=== PATIENT | female | born 1970 | race Caucasian/White ===

== ENCOUNTER 2018-09-28 11:00 | Inpatient (IN) | payer OTHER ==
[2018-09-20 17:36] VITALS: BMI 22.6
--- NOTE | 2018-09-21 10:39 | HP ---
Admitting History and Physical - Primary Care Physician PCP: Srinivasa Perea - Admission Chief Complaint: Left breast cancer History of Present Illness: 47 year old premenapausal female with strong family H/O breast cancer who underwent screening mammogram 06/2018 showing an area of distortion and pleomorphic calcification left upper inner quadrant. Diagnostic nmammogram and Us showed 9mm spiculated mass with calcifications 3 cm FN left breast at 10: 00. US core bx left breast at 10:00 showed invasive ductal carcinoma ER+/VA+ HER2-. . Breast MRI showed localized left breast cancer and targeted right breast US for right breast MRI findings birad 3, 6 month follow up. Genetic testing panel negative. History Source: Patient Limitations to Obtaining History: No Limitations - Past Medical History ...LMP: 08/18/18 - Past Surgical History Additional Past Surgical History: left breast US core bx benign 2011 - Advance Directives Advance Directives: Yes: Health Care Proxy - Smoking History Smoking history: Former smoker Have you smoked in the past 12 months: No Aproximately how many cigarettes per day: 10 If you are a former smoker, when did you quit?: 1999 - Alcohol/Substance Use Hx Alcohol Use: Yes (SOCIAL) Home Medications - Allergies Allergies/Adverse Reactions: Allergies Allergy/AdvReac Type Severity Reaction Status Date / Time No Known Allergies Allergy Verified 09/20/18 17:26 - Home Medications Home Medications: Ambulatory Orders Multivit-Min/Iron Fum/Folic AC [Smaad-Bgwfbvg-Ovjwiwod Tablet] 1 each PO DAILY 09/20/18 Family Disease History - Family Disease History Family Disease History: CA: Grandparent (mat GF melanoma 43), Sister (breast ca bilateral mastectomies) Other Family History: pat aunt ovarian ca 65. pat [place] uterine ca? Problem List - Problems (1) Breast cancer, left breast Code(s): C50.912 - MALIGNANT NEOPLASM OF UNSPECIFIED SITE OF LEFT FEMALE BREAST Qualifiers: Breast location: upper inner quadrant of breast Estrogen receptor status: positive Patient sex: female Qualified Code(s): C50.212 - Malignant neoplasm of upper-inner quadrant of left female breast; Z17.0 - Estrogen receptor positive status [ER+] Assessment/Plan Bilateral total mastectomies with reconstruction, left sentenel node biopsy , lymphoscintogram , possible left axillary node dissection
[2018-09-28] MEDS ORDERED: MIDAZOLAM HCL 2 MG/2 ML SINGLE DOSE VIAL ONE (12:34)
[2018-09-28] MEDS ORDERED: BUPIVACAINE HCL/PF 2.5 MG/ML - 30 ML VIAL IJ ONE (12:35)
[2018-09-28] MEDS ORDERED: BUPIVACAINE LIPOSOME/PF (EXPAREL) 266 MG/20 ML VIAL ONE (12:35)
[2018-09-28] MEDS ORDERED: ceFAZolin SODIUM 1 GM VIAL ONE (12:37)
[2018-09-28] MEDS ORDERED: GENTAMICIN SO4 80 MG/2 ML VIAL ONE (12:37)
[2018-09-28] MEDS ORDERED: ISOSULFAN BLUE 10 MG/ML VIAL SQ ONE (13:06)
[2018-09-28] MEDS ORDERED: LIDOCAINE HCL/PF 2% SDV 5ML VIAL ONE (13:09)
[2018-09-28] MEDS ORDERED: DEXAMETHASONE SOD PHOSPHATE 4 MG/1 ML VIAL ONE (13:09)
[2018-09-28] MEDS ORDERED: ONDANSETRON 4 MG/2 ML VIAL ONE (13:09)
[2018-09-28] MEDS ORDERED: PROPOFOL 20 ML ONE (13:10)
[2018-09-28] MEDS ORDERED: ROCURONIUM BROMIDE 50 MG/5 ML VIAL ONE ×2 (13:11→15:18)
[2018-09-28] MEDS ORDERED: HYDROmorphone HCL/PF 1 MG/ML AMP ONE (13:33)
[2018-09-28] MEDS ORDERED: oxyCODONE HCL 5 MG TABLET PO PRN ×2 (14:22→14:23)
[2018-09-28] MEDS ORDERED: DESFLURANE GAS 240 ML BOTTLE IH ONE (15:27)
[2018-09-28] MEDS ORDERED: ONDANSETRON 4 MG/2 ML VIAL IVPUSH PRN ×2 (16:03→17:03)
[2018-09-28] MEDS ORDERED: ACETAMINOPHEN 325 MG TABLET (FP) PO PRN (16:03)
[2018-09-28] MEDS ORDERED: ZOLPIDEM TARTRATE 5 MG TABLET PO PRN (16:03)
[2018-09-28] MEDS ORDERED: GLYCOPYRROLATE 0.2 MG/1 ML VIAL ONE (16:36)
[2018-09-28] MEDS ORDERED: NEOSTIGMINE METHYLSULFATE 0.5 MG/ML - 10 ML MDV ONE (16:36)
[2018-09-28] MEDS ORDERED: KETOROLAC TROMETHAMINE 30 MG/1 ML VIAL ONE (16:36)
--- NOTE | 2018-09-28 16:59 | SURG ---
Surgery Research Computing Specialist Note Research Computing Specialist: Arnol Haywood PA-C Date of Service: 09/28/18 Diagnosis: Breast cancer Procedure: Bilateral breast reconstruction s/p mastectomy with alloderm and implant I was present for the entirety of the operative procedure. For further detail, please refer to operative report. Visit type - Case Type Case Type: Scheduled - Emergency Emergency Visit: No - New patient This patient is new to me today: Yes Date on this admission: 09/28/18 - Critical Care Critical Care patient: No
[2018-09-28] MEDS ORDERED: PROMETHAZINE HCL 25 MG/1 ML VIAL IVPUSH PRN ×2 (17:03→17:56)
[2018-09-28] MEDS ORDERED: PROMETHAZINE HCL 25 MG/1 ML VIAL IVPUSH ONE ×2 (17:20→17:50)
[2018-09-28] MEDS ORDERED: traMADol HCL 50 MG TABLET ONE (17:35)
[2018-09-28] MEDS ORDERED: ACETAMINOPHEN 325 MG TABLET (FP) ONE (17:35)
[2018-09-28] MEDS: ACETAMINOPHEN 325 MG TABLET (FP) PO SCH ×2 (18:15→21:43)
[2018-09-28] MEDS: traMADol HCL 50 MG TABLET PO SCH ×2 (18:16→21:42)
[2018-09-28] MEDS: CEFAZOLIN 1 GM/D5W 1 GM/50 ML BAG IVPB SCH (21:41)
[2018-09-28] MEDS: diazePAM 5 MG TABLET PO SCH (21:42)
--- NOTE | 2018-09-28 23:30 | OP ---
DATE OF OPERATION: 09/28/2018 PREOPERATIVE DIAGNOSIS: Left breast cancer upper inner quadrant. POSTOPERATIVE DIAGNOSIS: Left breast cancer upper inner quadrant, await permanent pathology. PROCEDURE: Bilateral nipple-sparing mastectomies with inframammary approach with bilateral direct implant reconstruction with AlloDerm and a left axillary sentinel lymph node biopsy. ANESTHESIA: General endotracheal anesthesia. PRIMARY SURGEON: Michael Fermin MD RN ON SITE: [facility] PRIMARY SURGEON FOR BILATERAL DIRECT IMPLANT RECONSTRUCTION WITH ALLODERM: Michael Danielle MD with his agency sales management assistant Nina Goodwin. COMPLICATIONS: None. INDICATIONS: Briefly, the patient is a 47-year-old, G2, P2, premenopausal, white female of [place] and [place] descent who has a family history with her sister who had breast cancer at age 46 and had bilateral mastectomies as well as a paternal aunt who had ovarian cancer at age 65. Her maternal grandfather had melanoma at age 43. The patient was found to have some distortion, pleomorphic calcifications in the upper inner aspect of the left breast on screening mammography in June 2018. Stereotactic biopsy showed a moderately differentiated invasive duct cancer, which was ER-MI positive, HER2/amy negative. The patient underwent an MRI showing localized disease and some benign findings in the right breast. She was given the option of partial mastectomy with sentinel lymph node biopsy versus mastectomy and chose to have bilateral mastectomies with a contralateral prophylactic mastectomy. She understood the lack of any survival benefit with prophylactic contralateral mastectomy, but still decided to go forward with this option. She underwent genetic panel testing, which was negative. The patient was seen by the plastic surgeon and opted to have direct implant reconstructions. She opted on nipple-sparing mastectomies and understood the theoretical risk of leaving some tissue underneath the nipple. She understood that we do retroareolar biopsies at the time of surgery. If these show cancer, we would remove the nipples. She understood the need for sentinel lymph node biopsy on the left side due to the cancer, but did not require sentinel node biopsy on the right side. All risks, complications of the procedure including risks of skin flap necrosis, nipple loss, hematoma and infection were explained to the patient. She had a full understanding. The patient was brought in for the procedure on September 28, 2018 and first underwent the lymphoscintigraphy with a periareolar injection of technetium 99 around the left breast nipple areolar complex and then was brought to the [facility] holding area. In the holding area, site verification was made and informed consent was obtained. Patient was marked preoperatively by plastic surgery. DESCRIPTION OF PROCEDURE: She was brought into the operating room and laid on the operating table in the supine position. Venodynes were placed on the lower extremities. She received 2 g of Ancef prior to incision. She underwent general endotracheal anesthesia. Both breasts were sterilely prepped and draped in the usual fashion. Inframammary incisions were marked bilaterally in the inframammary folds about 9 cm in length, symmetrically. The left axillary sentinel lymph node biopsy was first performed. No blue dye was injected since we were doing a nipple-sparing procedure. Incision was made just below the hair-bearing area of the left axilla. Dissection was undertaken and hot node was easily found in the level 1 region of the left axilla with a 10-second gamma count of 7020. This was sent for frozen section and came back negative. No further hot or blue nodes were found. Background count after removal of this noted was 242. Hemostasis was achieved. At this point, the left breast mastectomy was performed through an inframammary incision 9-cm in length. The skin edge was everted and the breast tissue was retracted inferiorly using Marcos clamps. The skin flap was raised using the PEEK radiofrequency device superiorly to the level of the clavicle, medially to the level of the sternum, laterally to the level of the latissimus, and inferiorly to the level of the inframammary fold. The breast was taken off of the pectoralis major muscle from inferomedial-to superolateral, completely removed intact. It was oriented with a long lateral, short superior suture and weighed to allow for appropriate cosmetic result. Specimen radiograph of the left breast did show removal of 2 clips corresponding to one of the clips where the cancer was. A retroareolar biopsy was taken underneath the left breast nipple areolar complex and sent for frozen section and did show some atypical lobular hyperplasia, but the left nipple was spared. Wound was copiously irrigated with warm sterile saline and hemostasis was achieved. At this point, the right breast was approached. Separate instruments and gloves were changed for the right side mastectomy. Again, a 9-cm inframammary incision was used and the skin edges were everted using manual retraction and the breast was retracted inferiorly using Marin clamps. The skin flap was raised using a PEEK radiofrequency device superiorly to the level of the clavicle, medially to the level of the sternum, laterally to the level of the latissimus, and inferiorly below the level of the inframammary fold. The breast was taken off of the pectoralis major muscle using electrocautery from [id number] and completely removed intact. It was oriented with a long lateral, short superior suture and weighed to allow for appropriate cosmetic result. A retroareolar biopsy was taken underneath the right nipple areolar complex and sent for frozen section and came back negative. The right nipple was spared. There was some lobular hyperplasia seen, possibly bordering on LCIS, but will wait for permanent pathology. At this point, Dr. Danielle became the primary surgeon and performed bilateral direct implant reconstruction placed in the subpectoral location using AlloDerm for direct implant reconstruction. Two Robert drains will be placed around each implant and brought through separate stab incisions on the lateral skin folds and sutured in place using 3-0 nylon suture. Incisions will all be closed by Plastic Surgery. The patient will be placed in a surgical bra postoperatively. We did use the supplied skin perfusion device during the case, which showed excellent skin perfusion both after the mastectomy and after implant placement. The patient was extubated at the end of the case and brought to the postanesthesia care unit postoperatively where she will be recovered and admitted postoperatively for pain management and wound management. She did have a paraspinous block, which was placed preoperatively for postoperative pain control that was done by Anesthesia. MICHAEL FERMIN M.D. [id number]
[2018-09-29] MEDS: CEFAZOLIN 1 GM/D5W 1 GM/50 ML BAG IVPB SCH ×4 (02:44→22:05)
[2018-09-29] MEDS: ACETAMINOPHEN 325 MG TABLET (FP) PO SCH ×5 (03:15→22:04)
[2018-09-29] MEDS: traMADol HCL 50 MG TABLET PO SCH ×5 (03:15→22:03)
[2018-09-29] MEDS: DEXTROSE 5%-0.45% SALINE 1,000 ML IV SCH ×2 (07:19→17:30)
[2018-09-29] MEDS: LACTATED RINGERS SOLUTION 1,000 ML IV SCH ×2 (07:20→17:30)
[2018-09-29] MEDS ORDERED: HEPARIN NA (PORCINE) 5,000 UNITS/ML 1ML VIAL SQ SCH (08:00)
[2018-09-29 08:01] LABS: HEMATOCRIT 31.3 % (32.4-45.2); HEMOGLOBIN 10.6 GM/dl (10.7-15.3); MCH 31.2 pg (25.7-33.7); MCHC 33.9 g/dl (32.0-36.0); MEAN CELL VOLUME 91.8 fl (80-96); MEAN PLT VOLUME 7.3 fl (7.5-11.1); PLATELET COUNT 349 K/MM3 (134-434); RBC 3.41 M/mm3 (3.60-5.2); RDW 11.5 % (11.6-15.6); WHITE BLOOD COUNT 6.4 K/mm3 (4.0-10.8)
[2018-09-29] MEDS: HEPARIN NA (PORCINE) 5,000 UNITS/ML 1ML VIAL SQ SCH ×2 (08:30→22:04)
--- NOTE | 2018-09-29 08:51 | PN ---
Progress Note, Physician Chief Complaint: Left breast cancer S/P bilateral total mastctomies left sentenel node biopsy implant alloderm reconstruction POD#1 History of Present Illness: patient is eating, no nausea or vomiting , pain managed with oxycodone prn - Current Medication List Current Medications: Active Medications Acetaminophen (Tylenol -) 650 mg PO Q6H [facility] Last Admin: 09/29/18 07:21 Dose: Not Given Acetaminophen (Tylenol -) 650 mg PO Q4H PRN PRN Reason: FEVER Diazepam (Valium -) 5 mg PO BID [facility] Last Admin: 09/28/18 21:42 Dose: 5 mg Heparin Sodium (Porcine) (Heparin -) 5,000 unit SQ BID@0800,2000 [facility] Cefazolin Sodium (Ancef 1 Gm Premixed Ivpb -) 1 gm in 50 mls @ 100 mls/hr IVPB Q6H-IV [facility] Stop: 10/05/18 20:59 Last Admin: 09/29/18 02:44 Dose: 100 mls/hr Dextrose/Sodium Chloride (D5-1/2ns -) 1,000 mls @ 100 mls/hr IV ASDIR [facility] Last Admin: 09/29/18 07:19 Dose: Not Given Lactated Ringer's (Lactated Ringers Solution) 1,000 mls @ 75 mls/hr IV ASDIR [facility] Last Admin: 09/29/18 07:20 Dose: Not Given Ondansetron HCl (Zofran Injection) 4 mg IVPUSH Q6H PRN PRN Reason: NAUSEA AND/OR VOMITING Oxycodone HCl (Roxicodone -) 5 mg PO Q3H PRN PRN Reason: PAIN LEVEL 1-5 Last Admin: 09/29/18 06:27 Dose: 5 mg Oxycodone HCl (Roxicodone -) 10 mg PO Q3H PRN PRN Reason: PAIN LEVEL 6-10 Tramadol HCl (Ultram -) 50 mg PO Q6H [facility] Last Admin: 09/29/18 07:19 Dose: Not Given Zolpidem Tartrate (Ambien -) 5 mg PO HS PRN PRN Reason: Insomnia - Objective Vital Signs: Vital Signs Temperature 98.2 F 09/29/18 06:35 Pulse Rate 90 09/29/18 06:35 Respiratory Rate 18 09/29/18 06:35 Blood Pressure 106/62 09/29/18 06:35 O2 Sat by Pulse Oximetry (%) 98 09/29/18 08:01 Constitutional: Yes: No Distress Breast(s): Yes: Other (Bilateral breast chest wall flaps viable with bilateral moderate echymosis incision intact with steristrips golden darins functioning left output> right) Labs: CBC, BMP 09/29/18 07:45 Problem List - Problems (1) Breast cancer, left breast Code(s): C50.912 - MALIGNANT NEOPLASM OF UNSPECIFIED SITE OF LEFT FEMALE BREAST Qualifiers: Breast location: upper inner quadrant of breast Estrogen receptor status: positive Patient sex: female Qualified Code(s): C50.212 - Malignant neoplasm of upper-inner quadrant of left female breast; Z17.0 - Estrogen receptor positive status [ER+] Assessment/Plan OOB with assistance IV antibotics spirometry SCD SQ heaprin plan for discharge tomorrow oxycodone,tylenol, valium prn
--- NOTE | 2018-09-29 08:55 | PN ---
Progress Note, Physician Chief Complaint: sp bilateral mastectomy, reconstruction under general anesthesia History of Present Illness: postop day one - Current Medication List Current Medications: Active Medications Acetaminophen (Tylenol -) 650 mg PO Q6H [facility] Last Admin: 09/29/18 07:21 Dose: Not Given Acetaminophen (Tylenol -) 650 mg PO Q4H PRN PRN Reason: FEVER Diazepam (Valium -) 5 mg PO BID [facility] Last Admin: 09/28/18 21:42 Dose: 5 mg Heparin Sodium (Porcine) (Heparin -) 5,000 unit SQ BID@0800,2000 [facility] Cefazolin Sodium (Ancef 1 Gm Premixed Ivpb -) 1 gm in 50 mls @ 100 mls/hr IVPB Q6H-IV [facility] Stop: 10/05/18 20:59 Last Admin: 09/29/18 02:44 Dose: 100 mls/hr Dextrose/Sodium Chloride (D5-1/2ns -) 1,000 mls @ 100 mls/hr IV ASDIR [facility] Last Admin: 09/29/18 07:19 Dose: Not Given Lactated Ringer's (Lactated Ringers Solution) 1,000 mls @ 75 mls/hr IV ASDIR [facility] Last Admin: 09/29/18 07:20 Dose: Not Given Ondansetron HCl (Zofran Injection) 4 mg IVPUSH Q6H PRN PRN Reason: NAUSEA AND/OR VOMITING Oxycodone HCl (Roxicodone -) 5 mg PO Q3H PRN PRN Reason: PAIN LEVEL 1-5 Last Admin: 09/29/18 06:27 Dose: 5 mg Oxycodone HCl (Roxicodone -) 10 mg PO Q3H PRN PRN Reason: PAIN LEVEL 6-10 Tramadol HCl (Ultram -) 50 mg PO Q6H [facility] Last Admin: 09/29/18 07:19 Dose: Not Given Zolpidem Tartrate (Ambien -) 5 mg PO HS PRN PRN Reason: Insomnia - Objective Vital Signs: Vital Signs Temperature 98.2 F 09/29/18 06:35 Pulse Rate 90 09/29/18 06:35 Respiratory Rate 18 09/29/18 06:35 Blood Pressure 106/62 09/29/18 06:35 O2 Sat by Pulse Oximetry (%) 98 09/29/18 08:01 Constitutional: Yes: Well Nourished Cardiovascular: Yes: WNL Respiratory: Yes: WNL Gastrointestinal: Yes: WNL Labs: CBC, BMP 09/29/18 07:45 Assessment/Plan No acute complications related to anesthesia, pain controlled, no further interventions from the dept of anesthesiology at this time
[2018-09-29] MEDS: diazePAM 5 MG TABLET PO SCH ×2 (09:32→22:03)
[2018-09-30] MEDS: CEFAZOLIN 1 GM/D5W 1 GM/50 ML BAG IVPB SCH ×2 (03:41→09:30)
[2018-09-30] MEDS: traMADol HCL 50 MG TABLET PO SCH ×2 (03:46→10:08)
[2018-09-30] MEDS: ACETAMINOPHEN 325 MG TABLET (FP) PO SCH ×2 (03:47→10:09)
[2018-09-30] MEDS: HEPARIN NA (PORCINE) 5,000 UNITS/ML 1ML VIAL SQ SCH (09:30)
[2018-09-30] MEDS: diazePAM 5 MG TABLET PO SCH (10:09)
--- NOTE | 2018-09-30 10:57 | OP ---
DATE OF OPERATION: 09/28/2018 PREOPERATIVE DIAGNOSES: 1. Bilateral acquired chest wall deformity status post bilateral mastectomy (611.89). 2. Personal history of genetic carcinoma. POSTOPERATIVE DIAGNOSES: 1. Bilateral acquired chest wall deformity status post bilateral mastectomy (611.89). 2. Personal history of genetic carcinoma. PROCEDURE: 1. Right immediate breast reconstruction utilizing immediate insertion of silicone breast implant and AlloDerm reconstruction. 2. Left immediate breast reconstruction utilizing immediate insertion of silicone breast implant and AlloDerm reconstruction. 3. Intravenous injection of indocyanine green dye and intraoperative diagnostic evaluation of non-coronary intraoperative fluorescein vascular angiography x 2. SURGEON: Michael Danielle MD PLACEMENT COORDINATOR SURGEON: Arnol Haywood PA-C ANESTHESIA: GENERAL ANESTHESIOLOGIST: OPERATIVE PROCEDURE IN DETAIL: The patient was taken to the operating room. After induction of general anesthesia in the supine position, both arms were extended and padded. Venodyne boots were placed. The entire chest wall was painted with ChloraPrep solution over its entire extent, and sterile drapes were placed in the usual fashion. The markings, which had been made in the standing position preoperatively, were reoutlined with the patient's knowledge. Time-out procedure was performed. Attention was turned by Dr. Perea to the mastectomies. Bilateral inframammary incisions were made and Dr. Perea performed mastectomies. This will be dictated under separate cover. Upon completion of the mastectomies, the wounds were copiously irrigated and attention was turned to the right breast. A subpectoral dissection was begun on the right breast, superiorly from the second rib, medially to the sternal fibers, and down to the inframammary fold, elevating the pectoralis major muscle from its insertion. At this point, a AlloDerm contour medium perforated acellular dermal matrix was brought into the field and sutured superiorly along the pectoralis major muscle after rehydration. This was carried along the lateral mammary fold and down the side of the breast reconstruction. At this point, Sientra smooth round high profile style 107, 240 mL implant was chosen. The left breast tissue removed was 232 gm, and the right breast approximately 216 gm. This implant was placed and then sutured with 3-0 Vicryl suture continued along the inframammary fold, completely covering the implant itself. The exact same procedure was carried out symmetrically on the opposite breast, also placing a Sientra smooth round high profile style 107, 240 mL implant in the same subpectoral pocket. Good symmetry was seen in the sitting position. After the implants were in place, the patient was injected with 10 mL of Isocyanide green dye and the Spy imaging system was brought into the field. The skin flowed to the right and left breasts and the nipple areolar complex, and the entire skin flaps were evaluated and seen to be viable with good blood flow. Two Robert drains were brought out through separate stab wounds laterally. Both wounds were closed symmetrically using 3-0 PDS suture on the deep tissue, 3-0 in a deep dermal fashion, and 4-0 in a subcuticular fashion. Both wounds were dressed sterilely with Mastisol and Steri-Strips with a surgical bra and a compression strap. The patient tolerated the procedure well. She was awakened, extubated and transferred to the recovery room in satisfactory condition. The environmental engineering assistant was present during the entire portion of the operation and closure. MICHAEL DANIELLE M.D. [id number] MTDD
[2018-09-30 12:06] VITALS: BP 106/54; PULSE 96; TEMP 99
--- NOTE | 2018-09-30 12:10 | DS ---
Physical Examination Vital Signs: Vital Signs Temperature 99.0 F 09/30/18 10:00 Pulse Rate 96 H 09/30/18 10:00 Respiratory Rate 16 09/30/18 10:00 Blood Pressure 106/54 L 09/30/18 10:00 O2 Sat by Pulse Oximetry (%) 97 09/30/18 10:00 Wound/Incision: Yes: Clean/Dry, Well Approximated (No signs of infection. Flaps viable.) Labs: CBC, BMP 09/29/18 07:45 Discharge Summary Reason For Visit: LEFT BREAST CA Procedures: Principal: Bilateral Nipple-Sparing Matectomies with Left SLNBx and Implants Condition: Good - Instructions Diet, Activity, Other Instructions: Post Operative Instructions - [facility] We hope your recovery will be uneventful. For those of you who have been given general anesthesia, there is a possibility you might have some lightheadedness and possibly nausea. It is important that each patient, especially those who have had general anesthesia, follow these instructions, please: 1. Do NOT operate a motor vehicle for 24 hours. 2. Do NOT drink any alcoholic beverages for 24 hours. 3. Do NOT take any sedatives, narcotics, or tranquilizers for 24 hours unless specifically ordered by your surgeon. 4. Do NOT undertake any strenuous exercise or outside activity for 24 hours unless specifically permitted by your surgeon. 5. Eat light foods that are easy to digest. If you have any problems with nausea and vomiting, lie down and rest. If it continues, call your surgeon. 6. Call your surgeon AT ONCE if you have problems with: a. Bleeding b. Urinating c. Excessive pain or drainage d. Numbness If any problems occur, call your physician first. If you cannot reach him/her, call the Ambulatory Surgery Unit at [phone], or the Emergency Room at . Follow up with Drs. Perea / Sangeeta in 7 days. Medication: Vicodin E-S OR Percocet 1-2 tablets every 4-6 hrs as needed for 5-7 days. Wound Care: Keep wound dry and clean for 48 hours. You may remove the dressing after 48 hours and may shower. Keep steri-strips in place until follow-up appointment No heavy lifting or strenuous activities. BREAST SURGERY INSTRUCTIONS Adam Perea M.D., FACS Srinivasa Perea M.D., ABRAHAM Rutherford M.D., FACS 1. Please call the office at to make a follow up appointment with your surgeon. This number can be also used for any urgent issues you may have. 2. Call us immediately if any of the following occur: *Bleeding from the incision or drain site (a small amount is normal) *Fever or chills *Redness and worsening tenderness around the surgical site *Drainage of pus or fluid from the incision or drain site 3. You may change the surgical dressing two (2) days after your surgery, and may shower then. If you have drains, you may shower after they have been removed, until then take a sponge bath. 4. It is normal for there to be some bruising and tenderness around the surgical site, and the breast may also be firm in this area. 5. Your surgeon used 3M DuraPrep Surgical Solution, a bacteria-killing skin preparation. It is recommended that this film remain on the skin after the procedure. The film will gradually wear away. If, however, early removal is desired: 1. Apply 8610 or 8611 3M Remover solution to the prepped area, keeping away from the wound edge or puncture site. Wipe off with a disposable towel. OR 2. Soak gauze with 70% Isopropyl alcohol and place on the prepped area for at least 40 seconds. Lightly scrub to remove the solution. 6. Please wear a comfortable bra (sports or surgical bra) all day and all night until your first follow-up visit with your surgeon. 7. The pain medicine you have been prescribed may make you constipated; make sure you drink plenty of water. You may use an over the counter laxative if needed. 8. You may resume your normal diet after surgery, although you may want to avoid rich foods for the first twenty-four (24) hours after surgery. Alcoholic drinks should be avoided while taking the prescribed pain medicine. 9. You may resume normal activities as long as there is no discomfort, but do not do upper body exercises until after your follow-up appointment. Do not lift anything heavier than a large phone book. You may resume driving once you have stopped taking the prescribed pain medicine and feel comfortable doing arm movements. WEAR BRA, NO SHOWER, empty and record VILMA output twice daily Referrals: Srinivasa Perea MD [Staff Physician] - Ulysses Danielle MD [Staff Physician] - Disposition: HOME - Home Medications Comprehensive Discharge Medication List: Ambulatory Orders Multivit-Min/Iron Fum/Folic AC [Obeiz-Ytxkmwq-Jpeqtcpi Tablet] 1 each PO DAILY 09/20/18
[2018-10-01] MEDS ORDERED: IRON FUM PO SCH (10:00)
[2018-10-01] MEDS ORDERED: [UNRECOGNIZED DRUG - OTHER] PO SCH (10:00)
[2018-10-01] MEDS ORDERED: FOLIC AC PO SCH (10:00)
[2018-10-01] MEDS ORDERED: MULTIVIT MIN PO SCH (10:00)
--- NOTE | 2018-10-05 14:24 | PATH ---
Surgical Pathology Report Patient Name: ELVIRA PINA Med. Rec. #: [id number] /Age/Gender: 1970 (Age: 47) / F Account: [id number] Location: [facility] MED-SURG Taken: 09/28/2018 Received: 09/28/2018 Reported: 10/05/2018 Physicians: Srinivasa Perea M.D. Specimen(s) Received A: SENTINEL LYMPH NODE FROZEN SECTION B: (2) RIGHT RETROAREOLAR TISUE (FS) C: (3) LEFT RETROAREOLAR TISSUE (FS) D: RIGHT BREAST TISSUE,STITCG LONG LATERAL SHORT SUPERIOR E: LEFT BREAST TISSUE, STITCH LONG LATERAL SHORT SUPERIOR F: LEFT BREAST ANTERIOR MARGIN, SUTURE PERSON BIOPSY CAVITY SICLE Clinical History Left invasive breast cancer upper inner quadrant Right prophylactic Intraoperative Consult Diagnosis A. Left axillary sentinel lymph node, frozen section: One negative lymph node. B. Right breast retroareolar tissue, frozen section: Lobular proliferation, favor lobular carcinoma in situ (LCIS). Defer to permanents for final clarification. C. Left retroareolar tissue, frozen section: Focal atypical lobular proliferation, favor atypical lobular hyperplasia (ALH). Defer to permanents for final clarification. Josesito Johnson M.D., 09/28/18 Final Diagnosis A. LEFT AXILLARY SENTINEL LYMPH NODE #1, COUNT 7020, BACKGROUND 242 (FS): ONE LYMPH NODE, NEGATIVE FOR METASTATIC CARCINOMA (0/1). B. RIGHT RETROAREOLAR TISSUE, EXCISION (FS): LOBULAR CARCINOMA IN SITU, CLASSICAL TYPE. Comment: Immunohistochemical stains performed and interpreted at [facility] show the following results: the tumor cells are negative for E-Cadherin. Smooth muscle myosin heavy chain and p63 show intact myoepithelial cell layer in the areas of lobular carcinoma in situ. C. LEFT RETROAREOLAR TISSUE, EXCISION (FS): BENIGN BREAST TISSUE. COMMENT: Immunohistochemical stain E-Cadherin performed and interpreted at [facility] highlights the benign epithelium. D. RIGHT BREAST TISSUE, MASTECTOMY: DUCTAL CARCINOMA IN SITU (DCIS), INTERMEDIATE NUCLEAR GRADE, SOLID AND CRIBRIFORM PATTERNS. SURGICAL MARGINS ARE UNINVOLVED BY DCIS. DCIS TO THE CLOSEST MARGIN (ANTERIOR MARGIN) MEASURES 7 MM. LOBULAR CARCINOMAS IN SITU, CLASSICAL TYPE. THE REST OF THE BREAST TISSUE SHOWED FIBROADENOMA, USUAL DUCTAL HYPERPLASIA AND FIBROCYSTIC CHANGES WITH ADENOSIS, APOCRINE METAPLASIA, AND STROMAL FIBROSIS. COMMENT: Immunohistochemical stains (block D15 and D18) performed and interpreted at [facility] show the following results: the tumor cells highlighted by E-Cadherin. Smooth muscle myosin heavy chain and p63 show intact myoepithelial cell layer in the areas of DCIS. Results of ER and NY studies performed on the specimen D (block# D15) at [facility] are as follows: ER (clone [id number] mouse monoclonal antibody by [employer]): 98% nuclear staining with strong and moderate intensity (Positive). NY (clone16 mouse monoclonal antibody by [employer]): <1% nuclear staining (Negative). E. LEFT BREAST TISSUE, MASTECTOMY: INVASIVE DUCTAL CARCINOMA, WELL DIFFERENTIATED (TUBULE SCORE: 2/3, NUCLEAR GRADE: 2/3, MITOTIC SCORE: 1/3; TOTAL SCORE 5/9, OMAYRA GRADE 1). INVASIVE CARCINOMA MEASURES 1.1CM IN GREATEST DIMENSION, MICROSCOPICALLY. DUCTAL CARCINOMA IN SITU (DCIS) IDENTIFIED, INTERMEDIATE NUCLEAR GRADE, CRIBRIFORM PATTERN, WITH ASSOCIATED CALCIFICATIONS. SURGICAL MARGINS ARE UNINVOLVED BY CARCINOMA. INVASIVE CARCINOMA TO CLOSEST MARGIN (ANTERIOR MARGIN) MEASURES 6 MM. DCIS TO THE CLOSEST MARGIN (ANTERIOR MARGIN) MEASURES 7 MM. SEE SPECIMENS F FOR FINAL ANTERIOR MARGIN. NO LYMPHOVASCULAR INVASION IS IDENTIFIED PRIOR BIOPSY SITE CHANGES ARE PRESENT. PATHOLOGIC STAGE (pTNM, AJCC 8th Edition): pT1c, pN0 ALSO SEE BREAST INVASIVE CARCINOMA CASE SUMMARY BELOW. COMMENT: Immunohistochemical stain (E1) performed and interpreted at [facility] show the invasive carcinoma highlighted by E-Cadherin, consistent with ductal phenotype. F. LEFT BREAST ANTERIOR MARGIN, EXCISION: BENIGN BREAST TISSUE AND SCANT SKELETAL MUSCLE. Comments Breast Invasive Carcinoma: Surgical Pathology Case Summary (Based on AJCC TNM 8 th edition) Procedure _x_ Total mastectomy (including nipple-sparing and skin-sparing mastectomy) Specimen Laterality _x_ Left Tumor Size _x_ Greatest dimension of largest invasive focus >1 mm (specify exact measurement) (millimeters): 11 mm Histologic Type _x_ Invasive carcinoma of no special type (ductal, not otherwise specified) Histologic Grade (Omayra Histologic Score) Glandular (Acinar)/Tubular Differentiation _x_ Score 2 (10% to 75% of tumor area forming glandular/tubular structures) Nuclear Pleomorphism _x_ Score 2 Mitotic Rate _x_ Score 1 Overall Grade _x_ Grade 1 (scores of 3, 4, or 5) Tumor Focality _x_ Single focus of invasive carcinoma Ductal Carcinoma In Situ (DCIS) _x_ DCIS is present in specimen __x_ Positive for EIC Margins Invasive Carcinoma Margins _x_ Uninvolved by invasive carcinoma Distance from closest margin (millimeters): 6 mm, anterior margin The final margins are negative (see specimen F for additional anterior margin) DCIS Margins _x_ Uninvolved by DCIS Distance from closest margin (millimeters): 7mm The final margins are negative (see specimen F for additional anterior margin) Regional Lymph Nodes Number of Lymph Nodes with Macrometastases (>2 mm): 0 Number of Lymph Nodes with Micrometastases (>0.2 mm to 2 mm and/or >200 cells): 0 Number of Lymph Nodes with Isolated Tumor Cells (=0.2 mm and =200 cells): 0 . Number of Lymph Nodes Examined: 1 Number of [place] Nodes Examined: 1 Treatment Effect _x_ No known presurgical therapy Lymphovascular Invasion _x_ Not identified Pathologic Stage Classification (pTNM, AJCC 8th Edition) Primary Tumor (Invasive Carcinoma) (pT) _x_ pT1c: Tumor >10 mm but =20 mm in greatest dimension Regional Lymph Nodes (pN) Modifier (required only if applicable) _x_ (sn): [place] node(s) evaluated. If 6 or more nodes (sentinel or nonsentinel) are removed, this modifier should not be used. Category (pN) _x_ pN0: No regional lymph node metastasis identified or ITCs only Biomarker Studies Results of ER and NY studies performed on the invasive ductal carcinoma in this specimen (block# E1) at [facility] are as follows: ER (clone [id number] mouse monoclonal antibody by [employer]): 95% nuclear staining with strong intensity (Positive). NY (clone16 mouse monoclonal antibody by [employer]): 95% nuclear staining with strong intensity (Positive). Results of Her2 (IHC) & Ki-67 studies performed on this specimen (block# E1) at [place], [place] ([id number]) are as follows: Her2 IHC (EP3 from [employer], formerly known as [id number], using [employer] Polymer Refine detection kit): 0 (negative) Ki67: <15 % (low proliferative index) Positive and negative controls (internal if applicable) show appropriate results. Formalin fixation and cold ischemic times are within current ASCO/CAP recommendations for ER, NY and Her2 testing. Electronically Signed Caren Zamora M.D. Gross Description A. Received fresh labeled "left axillary sentinel lymph node #1," is a 2.0 cm in greatest dimension kaplan lymph node. The specimen is submitted in toto for frozen section. The frozen section residue is entirely submitted in one cassette. B. Received fresh labeled "right retroareolar tissue," is a 1.2 x 0.6 x 0.3 cm portion of kaplan-red tissue. The specimen is submitted in toto for frozen section. The frozen section residue is entirely submitted in one cassette. C. Received fresh labeled "left retroareolar tissue," is a 2.0 x 1.2 x 0.3 cm portion of kaplan-red tissue. The specimen is submitted in toto for frozen section. The frozen section residue is entirely submitted in one cassette. D. Received in formalin, labeled "right breast tissue," is a 228 gram, 13.5 x 13.0 x 2.8 cm. right mastectomy specimen with a short suture marking the superior aspect and a long suture marking the lateral aspect of the specimen, per the surgeon. There is no skin or nipple present. The deep margin is inked black and the anterior soft tissue margin is inked blue. The specimen is serially sectioned from lateral to medial. Sectioning reveals abundant dense, white, focally firm fibrous tissue. No discrete lesions are identified. Red Cap sections are submitted in 11 cassettes as follows: 1-2-upper outer quadrant; 3-4-lower outer quadrant; 5-6-upper inner quadrant; 7-9-lower inner quadrant; 10-anterior soft tissue margin; 11-deep margin. 12-18: Additional sections near anterior margin E. Received in formalin, labeled "left breast tissue," is a 244 gram, 15.0 x 11.0 x 2.7 cm. left mastectomy specimen with a short suture marking the superior aspect and a long suture marking the lateral aspect of the specimen, per the surgeon. There is no skin or nipple present. The deep margin is inked black and the anterior soft tissue margin is inked blue. The specimen is serially sectioned from medial to lateral. Sectioning reveals a 1.1 x 0.9 x 0.6 cm kaplan, indurated mass in the upper inner quadrant (UIQ). The mass is 0.5 cm from the anterior soft tissue margin and 0.8 cm from the deep margin. The remaining breast parenchyma displays abundant dense, white fibrous tissue. Red Cap sections are submitted in 10 cassettes as follows: 1-full face section of UIQ mass with anterior soft tissue margin and deep margin; 6-6-cmnebciuxi sections of mass (each with anterior soft tissue margin and deep margin); 4-uninvolved UIQ; 5-6-lower inner quadrant; 7-8-upper outer quadrant; 9-10-lower outer quadrant. Time to formalin fixation: 10 minutes Total formalin fixation time: Approximately 26 hours. F. Received in formalin labeled "left breast anterior margin," is a 5.1 x 3.3 x 1.2 cm portion of fibroadipose tissue with a suture marking the biopsy cavity side, per the surgeon. The new margin is inked blue and the specimen is serially sectioned. The specimen is entirely and sequentially submitted in 9 cassettes. 09/29/2018 saudi09/29/2018
== END 2018-09-30 12:45 | disposition home or self-care (01) | DRG 578 ==
LOC: FM/S 11:39
PROVIDERS: ADMIT Surgery Surgical Oncology; ATTEND Surgery Surgical Oncology
PROC: 0HTV0ZZ Resection of Bilateral Breast, Open Approach (ICD-10-PCS; principal; 2018-09-28 13:47)
PROC: 0HRVXKZ (ICD-10-PCS; 2018-09-28 13:47)
PROC: 07B60ZX Excision of Left Axillary Lymphatic, Open Approach, Diagnostic (ICD-10-PCS; 2018-09-28 13:47)
PROC: C71L1ZZ Planar Nuclear Medicine Imaging of Upper Chest Lymphatics using Technetium 99m (Tc-99m) (ICD-10-PCS; 2018-09-28 13:47)
DX: C50.212 Malignant neoplasm of upper-inner quadrant of left female breast (principal); Z17.0 Estrogen receptor positive status [ER+]; Z87.891 Personal history of nicotine dependence; Z80.3 Family history of malignant neoplasm of breast; Z80.41 Family history of malignant neoplasm of ovary
CPT/HCPCS: 36415; 78195-TC; 84703; 85027; 88307-TC; 88331-TC; 88341-TC; 94760; A9541; J1644